=== PATIENT | female | born 1935 | race Caucasian/White ===

== ENCOUNTER 2020-11-18 | Outpatient (REF) | payer MEDICARE, SELFPAY | END 2020-11-18 00:01 | disposition home or self-care (01) | LOC: HO.LNP | PROVIDERS: Visit Provider Hospitalist | DX: N39.0 Urinary tract infection, site not specified (principal) | CPT/HCPCS: 87086; 87088; 87186 ==

== ENCOUNTER 2020-11-20 | Outpatient (REF) | payer MEDICARE, SELFPAY | END 2020-11-20 00:01 | disposition home or self-care (01) | LOC: HO.LNP | PROVIDERS: Visit Provider Hospitalist | DX: Z13.89 Encounter for screening for other disorder (principal) ==